=== PATIENT | male | born 1985 | race Caucasian/White ===

== ENCOUNTER 2022-04-05 15:56 | Outpatient (CLI) | payer OTHER, SELFPAY ==
--- NOTE | ~2022-04-05 | US_ITS ---
EXAMINATION: US scrotum doppler DATE: 04/05/2022 16:47 INDICATION: Left testicular mass TECHNIQUE: Testicular sonogram utilizing grayscale and Doppler COMPARISON: None. FINDINGS: The right testis measures 4.2 x 2.3 x 2.8 cm. The left testis measures 3.4 x 3.2 x 2.6 cm. Symmetric normal grayscale appearance to both testes. There is normal vascular flow to both testes. Inferior to the left testis is a 2.8 x 2.8 x 2.8 cm heterogeneous mass more hypoechoic than the adjacent testis. This appears to arise along with vascular flow on color Doppler from the tissues along side the left epididymis. There is shadowing refraction artifact seen along what appears to be a plane the testis from the mass. On cine grayscale imaging the mass does not appear to extend cephalad to th e testis where there is no evident inguinal hernia. The left epididymis appears otherwise normal with normal vascular flow. 4 mm anechoic right epididymal cyst. The right epididymis is otherwise normal with normal vascular flow. Mild left varicocele with vessels measuring up to 3 mm diameter. There is also a small left hydrocele. IMPRESSION: 1. Nonspecific 2.8 cm solid mass inferior to the left testis which appears to arise from the epididy mis rather than from the testis. Differential would include neoplasm either benign or less likely mal ignant, sperm granuloma or other inflammatory pseudotumor or granuloma related sarcoidosis or infecti on. 2. Small left hydrocele and mild left varicocele. Reviewed, dictated and finalized at location A. IMPRESSION: 1. Nonspecific 2.8 cm solid mass inferior to the left testis which appears to arise from the epididymis rather than from the testis. Differential would inclu de neoplasm either benign or less likely malignant, sperm granuloma or other in flammatory pseudotumor or granuloma related sarcoidosis or infection. 2. Small left hydrocele and mild left varicocele.
== END 2022-04-05 15:57 | disposition home or self-care (01) ==
PROVIDERS: PCP Internal Medicine; Visit Provider Urology
DX: N50.89 Other specified disorders of the male genital organs (principal); N43.3 Hydrocele, unspecified; I86.1 Scrotal varices
CPT/HCPCS: 76870; 93976

== ENCOUNTER 2022-05-17 14:55 | Outpatient (CLI) | payer OTHER, SELFPAY ==
--- NOTE | ~2022-05-17 | US_ITS ---
EXAMINATION: US scrotum doppler DATE: 05/17/2022 15:49 INDICATION: Testicular mass TECHNIQUE: Testicular sonogram utilizing grayscale and Doppler COMPARISON: 04/05/2022 FINDINGS: The right testis measures 5 x 2.5 x 3.1 cm. The left testis measures 4.8 x 1.9 x 3.2 cm. Th ere is an approximately 2.1 x 1.7 cm hypoechoic, heterogeneous mass located inferior to the left test icle which appears to have slightly decreased in size. There is normal vascular flow to both testes. The right epididymis is normal with normal vascular flow. The left epididymis is normal with normal v ascular flow. There is no varicocele or hydrocele. IMPRESSION: 1. Heterogeneous solid mass adjacent to the left testicle with possible slight decrease in size. Diff erential is as previously described with resolving infection increasing in probability. Continued fol low-up is recommended. Reviewed, dictated and finalized at location B. TOW [employer]ATOR IMPRESSION: 1. Heterogeneous solid mass adjacent to the left testicle with possible slight decrease in size. Differential is as previously described with resolving infect ion increasing in probability. Continued follow-up is recommended.
[2022-05-17 16:06] LABS: Mean Corpuscular HGB Conc 33.3 g/dl (32-36); Mean Corpuscular Hemoglobin 27.9 pg (26-34); Mean Corpuscular Volume 83.6 fl (80-100); Mean Platelet Volume 9.2 fl (7.4-10.4); Platelet Count Result 228 k/mm3 (150-375); Red Blood Count 5.38 M/mm3 (4.6-6.20); Red Cell Distribution Width 12.8 % (11.5-14.5); White Blood Count 6.3 K/mm3 (4.5-10.0)
[2022-05-17 16:54] LABS: Lactate Dehydrogenase 163 U/L (120-246)
[2022-05-22 16:25] LABS: FSH 3.1 mIU/mL (1.6-8.0); HCG Tumor Marker <3 mIU/mL (<5); LH 3.5 mIU/mL (1.5-9.3); Prolactin 6.1 ng/mL (***)
[2022-05-23 22:23] LABS: Alpha Fetoprotein Tumor Marker 2.3 ng/mL (<6.1)
[2022-05-24 22:27] LABS: Estradiol, Ultrasensitive 15 pg/mL (< OR = 29)
== END 2022-05-17 14:56 | disposition home or self-care (01) ==
PROVIDERS: PCP Internal Medicine; Visit Provider Urology
DX: Z31.41 Encounter for fertility testing (principal); N50.89 Other specified disorders of the male genital organs
CPT/HCPCS: 36415; 76870; 82105; 82670; 83001; 83002; 83615; 84146; 84702; 85027; 93976